=== PATIENT | female | born 2000 | race Two or more races ===

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

== ENCOUNTER 2022-10-02 04:41 | Inpatient (IN) | payer BC ==
[2022-10-02] MEDS ORDERED: cefTRIAXone (ROCEPHIN) 2 GM VIAL ONE (05:14)
[2022-10-02 05:26] LABS: #Eosinphils 0.2 thou/uL (0.0-0.7); #Monocytes 0.6 thou/uL (0.11-0.59); #Neutrophils 13.1 thou/uL (1.40-6.50); %Basophils 0.2 % (0.0-1.0); %Lymphocytes 12.6 % (28.0-48.0); %Monocytes 3.6 % (0.0-4.0); %Neutrophils 82.2 % (31.0-61.0); Hemoglobin 12.8 g/dL (12.0-16.0); Mean Corpuscular HGB CONC 33.2 g/dL (32.0-36.0); Mean Corpuscular Hemoglobin 30.3 pg (25.0-35.0); Mean Platelet Volume 9.6 fL (7.4-10.4); Platelet Count 453 10x3/uL (130-400); RBC Distribution Width 12.3 % (11.5-14.5); Red Blood Cell (RBC) Count 4.23 mill/uL (4.00-5.20); White Blood Cell (WBC) Count 15.9 10x3/uL (4.8-10.8)
[2022-10-02 05:50] LABS: ALT (SGPT) 42 U/L (8-55); AST (SGOT) 17 U/L (5-34); Albumin 4.4 g/dL (3.5-5.0); Alkaline Phosphatase 65 U/L (40-100); Anion Gap 15 mmol/L (10-20); BUN (Urea Nitrogen) 12 mg/dL (7.0-18.7); Bilirubin, Total 0.3 mg/dL (0.2-1.2); Calc. Creatinine Clearance 0 mL/min (70-130); Calcium 9.8 mg/dL (7.8-10.44); Carbon Dioxide 20 mmol/L (22-29); Chloride 106 mmol/L (98-107); Estimated GFR 103; Globulin 3.6 g/dL (2.4-3.5); Glucose 125 mg/dL (70-105); Lipase 30 U/L (8-78); Sodium 137 mmol/L (136-145)
[2022-10-02] MEDS ORDERED: Ondansetron PF 4 MG/2 ML Vial ONE (05:57)
[2022-10-02] MEDS ORDERED: Acetaminophen 500 MG TAB ONE (06:10)
[2022-10-02 06:59] LABS: Pregnancy Test - Urine (BHCG) Negative (Negative); Pregu Control Bar Appear? YES (CONTROL BAR)
[2022-10-02 07:00] LABS: Pregu Control Background? CLEAR/WHITE (CLR/WHITE)
[2022-10-02 07:02] LABS: Bacteria/HPF 4+ HPF (None Seen); Bilirubin Negative (Negative); Blood, Urine 3+ (Negative); CAUTI Indications for Culture Dysuria,urgency,freq; Clarity Turbid (Clear); Glucose, Urine (Dipstick) Normal (Negative); Ketone, Urine Negative (Negative); Leukocyte 500 Leu/uL (Negative); Nitrite 2+ (Negative); Protein, Urine (Dipstick) 50 mg/dL (Neg-Trace); Specific Gravity, Urine 1.015 (1.002-1.036); Squamous Epithelial 0-3 HPF (0-3); Transitional Epithelial 0-3 HPF (None Seen); Urobilinogen Normal mg/dL (Less than 2); WBC/HPF Greater than 50 HPF (0-3)
[2022-10-02 07:14] LABS: Specific Gravity 1.018 (1.002-1.036)
[2022-10-02 07:30] LABS: Urine Culture Reflex Yes Yes
[2022-10-02] MEDS ORDERED: Ondansetron PF 4 MG/2 ML Vial IVP PRN (09:35)
[2022-10-02] MEDS ORDERED: HumaLOG 300 UNITS/3 ML VIAL SC PRN (09:38)
[2022-10-02] MEDS ORDERED: Glucagon 1 MG/ML KIT IM PRN (09:38)
[2022-10-02] MEDS ORDERED: Dextrose 50% Abboject 50 ML SYRINGE SLOW IVP PRN (09:38)
[2022-10-02] MEDS ORDERED: Dextrose 5% in Water 1,000 ML IV PRN (09:38)
[2022-10-02] MEDS: Acetaminophen 325 MG TAB PO PRN ×3 (10:48→22:34)
[2022-10-02] MEDS: Sodium Chloride 0.9% 1,000 ML IV SCH ×2 (10:49→22:34)
[2022-10-02 13:30] VITALS: BMI 36.6
[2022-10-02] MEDS: metFORMIN 500 MG TAB PO SCH (17:49)
[2022-10-02] MEDS ORDERED: Morphine 2 MG/ML VIAL SLOW IVP SCH (18:30)
[2022-10-02] MEDS ORDERED: Acetaminophen 500 MG TAB PO SCH (18:45)
[2022-10-02] MEDS: Famotidine 20 MG TAB PO SCH (20:26)
[2022-10-02] MEDS: Simvastatin 10 MG TAB PO SCH (20:26)
[2022-10-03] MEDS ORDERED: Ketorolac Tromethamine 30 MG/ML VIAL IVP SCH (01:45)
[2022-10-03] MEDS: cefTRIAXone\\ROCEPHIN 2 GM in Sodium Chloride 0.9% 100 ML IVPB SCH (05:09)
[2022-10-03 06:25] LABS: #Monocytes 0.6 thou/uL (0.11-0.59); #Neutrophils 10.8 thou/uL (1.40-6.50); %Basophils 0.1 % (0.0-1.0); %Eosinophils 0.1 % (0.0-10.0); %Lymphocytes 14.4 % (28.0-48.0); %Monocytes 4.6 % (0.0-4.0); %Neutrophils 80.4 % (31.0-61.0); Hemoglobin 11.9 g/dL (12.0-16.0); Mean Corpuscular HGB CONC 32.2 g/dL (32.0-36.0); Mean Corpuscular Volume 93.2 fl (78.0-98.0); Mean Platelet Volume 9.7 fL (7.4-10.4); Platelet Count 378 10x3/uL (130-400); RBC Distribution Width 12.8 % (11.5-14.5); Red Blood Cell (RBC) Count 3.97 mill/uL (4.00-5.20); White Blood Cell (WBC) Count 13.5 10x3/uL (4.8-10.8)
[2022-10-03 06:56] LABS: Anion Gap 14 mmol/L (10-20); BUN (Urea Nitrogen) 7 mg/dL (7.0-18.7); Calc. Creatinine Clearance 174 mL/min (70-130); Calcium 8.8 mg/dL (7.8-10.44); Carbon Dioxide 19 mmol/L (22-29); Chloride 109 mmol/L (98-107); Estimated GFR 119; Glucose 176 mg/dL (70-105); Potassium 4.1 mmol/L (3.5-5.1); Sodium 138 mmol/L (136-145)
[2022-10-03] MEDS: Famotidine 20 MG TAB PO SCH ×2 (08:33→20:06)
[2022-10-03] MEDS: metFORMIN 500 MG TAB PO SCH ×2 (08:33→16:23)
[2022-10-03] MEDS: Acetaminophen 325 MG TAB PO PRN ×2 (09:17→16:22)
[2022-10-03] MEDS ORDERED: Polyethylene Glycol 3350 17 GM Packet PO SCH (12:00)
[2022-10-03] MEDS ORDERED: Docusate 100 MG CAP PO SCH (12:00)
[2022-10-03] MEDS: Sodium Chloride 0.9% 1,000 ML IV SCH (12:38)
[2022-10-03] MEDS: Simvastatin 10 MG TAB PO SCH (20:06)
[2022-10-03] MEDS: HYDROcodone/Acetaminophen 7.5/325 mg Tablet PO PRN (20:07)
[2022-10-04] MEDS: HYDROcodone/Acetaminophen 7.5/325 mg Tablet PO PRN ×2 (04:51→17:39)
[2022-10-04] MEDS: Sodium Chloride 0.9% 1,000 ML IV SCH ×3 (04:52→20:10)
[2022-10-04] MEDS: cefTRIAXone\\ROCEPHIN 2 GM in Sodium Chloride 0.9% 100 ML IVPB SCH (04:52)
[2022-10-04] MEDS: metFORMIN 500 MG TAB PO SCH ×2 (09:06→17:36)
[2022-10-04] MEDS: Famotidine 20 MG TAB PO SCH ×2 (09:06→20:11)
[2022-10-04] MEDS ORDERED: Labetalol HCl 100 MG/20 ML VIAL ONE (09:42)
[2022-10-04] MEDS ORDERED: Polyethylene Glycol 3350 17 GM Packet PO SCH (12:00)
[2022-10-04] MEDS ORDERED: Docusate 100 MG CAP PO SCH (12:00)
[2022-10-04] MEDS: Simvastatin 10 MG TAB PO SCH (20:11)
[2022-10-05] MEDS: Acetaminophen 325 MG TAB PO PRN ×2 (02:16→08:23)
[2022-10-05] MEDS: cefTRIAXone\\ROCEPHIN 2 GM in Sodium Chloride 0.9% 100 ML IVPB SCH (05:16)
[2022-10-05 07:12] LABS: Hemoglobin 10.3 g/dL (12.0-16.0); Mean Corpuscular HGB CONC 32.3 g/dL (32.0-36.0); Mean Corpuscular Hemoglobin 29.7 pg (25.0-35.0); Mean Corpuscular Volume 91.9 fl (78.0-98.0); Mean Platelet Volume 9.8 fL (7.4-10.4); Platelet Count 358 10x3/uL (130-400); RBC Distribution Width 12.6 % (11.5-14.5); Red Blood Cell (RBC) Count 3.47 mill/uL (4.00-5.20); White Blood Cell (WBC) Count 9.2 10x3/uL (4.8-10.8)
[2022-10-05 08:00] VITALS: BP 117/81
[2022-10-05] MEDS: Famotidine 20 MG TAB PO SCH (08:17)
[2022-10-05] MEDS: metFORMIN 500 MG TAB PO SCH (08:17)
[2022-10-05] MEDS ORDERED: Docusate 100 MG CAP PO SCH (09:00)
[2022-10-05] MEDS ORDERED: Polyethylene Glycol 3350 17 GM Packet PO SCH (09:00)
[2022-10-05 11:25] VITALS: TEMP 98.5
== END 2022-10-05 12:01 | disposition home or self-care (01) | DRG 872 ==
LOC: ERS 04:41 → T4-B 09:39 → OBSVTOIN 10-03 11:55
PROVIDERS: ADMIT Internal Medicine; ATTEND Internal Medicine
DX: A41.51 Sepsis due to Escherichia coli [E. coli] (principal); N10 Acute pyelonephritis; Q60.0 Renal agenesis, unilateral; E66.9 Obesity, unspecified; E11.9 Type 2 diabetes mellitus without complications; E78.5 Hyperlipidemia, unspecified; Z68.35 Body mass index [BMI] 35.0-35.9, adult; Z71.3 Dietary counseling and surveillance; Z83.3 Family history of diabetes mellitus; Z82.49 Family history of ischemic heart disease and other diseases of the circulatory system; Z79.84 Long term (current) use of oral hypoglycemic drugs; Z79.899 Other long term (current) drug therapy
CPT/HCPCS: 36415; 36416; 74176; 80048; 80053; 81001; 81025; 83605; 83690; 85025; 85027; 87040; 87077; 87086; 87186; 96365; 96375; 96376; G0378; J0696; J1885; J2272; J2405; J3490; J7050

== ENCOUNTER 2023-10-29 11:27 | Outpatient (CLI) | payer BC | END 2023-10-29 11:28 | disposition home or self-care (01) | LOC: DTY/OP 11:27 | PROVIDERS: ATTEND Family Medicine | DX: E11.65 Type 2 diabetes mellitus with hyperglycemia (principal) | CPT/HCPCS: 97802 ==

== ENCOUNTER 2024-02-26 11:07 | Emergency (ER) | payer BC ==
[2024-02-26 11:52] LABS: #Basophils Less than 0.03 10x3/uL (0.0-0.2); %Basophils 0.3 % (0.0-1.0); %Eosinophils 1.6 % (0.0-10.0); %Lymphocytes 24.9 % (21.0-51.0); %Monocytes 4.7 % (0.0-10.0); %Neutrophils 68.1 % (42.0-75.0); Hematocrit 36.4 % (36.0-47.0); Hemoglobin 12.2 g/dL (12.0-16.0); Mean Corpuscular HGB CONC 33.5 g/dL (32.0-36.0); Mean Corpuscular Volume 89.7 fL (78.0-98.0); Mean Platelet Volume 9.1 fL (7.4-10.4); Platelet Count 456 10x3/uL (130-400); RBC Distribution Width 12.5 % (11.5-14.5); Red Blood Cell (RBC) Count 4.06 mill/uL (4.20-5.40)
[2024-02-26 12:12] LABS: Anion Gap 14 mmol/L (10-20); BUN (Urea Nitrogen) 10 mg/dL (7.0-18.7); Calc. Creatinine Clearance 0 mL/min (70-130); Calcium 9.1 mg/dL (7.8-10.44); Carbon Dioxide 21 mmol/L (22-29); Chloride 106 mmol/L (98-107); Estimated GFR 129; Glucose 126 mg/dL (70-105); Potassium 4.2 mmol/L (3.5-5.1); Sodium 137 mmol/L (136-145)
[2024-02-26 12:58] LABS: Bilirubin Negative (Negative); Blood, Urine Negative (Negative); CAUTI Indications for Culture < 2yrs of age; Clarity Clear (Clear); Glucose, Urine (Dipstick) Normal (Negative); Ketone, Urine Negative (Negative); Leukocyte Negative Leu/uL (Negative); Nitrite Negative (Negative); Protein, Urine (Dipstick) 10 mg/dL (Neg-Trace); RBC/HPF 0-3 HPF (0-3); Specific Gravity, Urine 1.031 (1.002-1.036); WBC/HPF 0-3 HPF (0-3)
[2024-02-26 13:04] LABS: Pregnancy Test - Urine (BHCG) Negative (Negative); Pregu Control Background? CLEAR/WHITE (CLR/WHITE); Pregu Control Bar Appear? YES (CONTROL BAR); Specific Gravity 1.031 (1.002-1.036)
[2024-02-26 13:05] LABS: Bacteria/HPF 1+ HPF (None Seen); Urine Culture Reflex Yes Yes
== END 2024-02-26 13:33 | disposition home or self-care (01) ==
LOC: ERS 11:07
DX: N39.0 Urinary tract infection, site not specified (principal); R32 Unspecified urinary incontinence; E11.9 Type 2 diabetes mellitus without complications; E78.5 Hyperlipidemia, unspecified; Z79.84 Long term (current) use of oral hypoglycemic drugs; Z79.899 Other long term (current) drug therapy
CPT/HCPCS: 36415; 80048; 81001; 81025; 85025; 87086; 99283